=== PATIENT | female | born 1985 | race Caucasian/White ===

== ENCOUNTER 2017-01-09 10:45 | Emergency (ER) | payer OTHER ==
[2017-01-09 10:51] VITALS: BP 142/96; PULSE 100; TEMP 98.4; BMI 32.9
--- NOTE | 2017-01-09 12:00 | PDOC ---
History of Present Illness - General Chief Complaint: Respiratory Stated Complaint: COUGH&COLD SX Time Seen by Provider: 01/09/17 10:50 History Source: Patient Exam Limitations: No Limitations - History of Present Illness Initial Comments: 01/09/17 11:57 CHIEF COMPLAINT: "I have a cough for 3 weeks." HISTORY OF PRESENT ILLNESS: 31-year-old female with a history of one half pack per day smoking. Patient developed a cold when her son was sick. It seemed like it was starting to get better but now it has continued. She has ongoing cough productive of green sputum. She also has some nasal congestion. There is no fever. There is no chest pain. There is no shortness of breath. When she takes a deep breath, she has severe paroxysms of coughing. REVIEW OF SYSTEMS: GENERAL/CONSTITUTIONAL: No fever or chills. No weakness. No weight change. HEAD, EYES, EARS, NOSE AND THROAT: No change in vision. No ear pain or discharge. No sore throat. CARDIOVASCULAR: No chest pain. Positive cough. No shortness of breath. RESPIRATORY: Positive cough. No audible wheezing. No hemoptysis. GASTROINTESTINAL: No nausea, vomiting, diarrhea or constipation. No rectal bleeding. GENITOURINARY: No dysuria, frequency, or change in urination. MUSCULOSKELETAL: No joint or muscle swelling or pain. No neck or back pain. SKIN AND BREASTS: No rash or easy bruising. NEUROLOGIC: No headache, vertigo, loss of consciousness, or loss of sensation. PSYCHIATRIC: No depression or anxiety. ENDOCRINE: No increased thirst. No abnormal weight change. HEMATOLOGIC/LYMPHATIC: No anemia, easy bleeding, or history of blood clots. ALLERGIC/IMMUNOLOGIC: No hives or skin allergy. No latex allergy. Past History - Past Medical History Allergies/Adverse Reactions: Allergies Allergy/AdvReac Type Severity Reaction Status Date / Time No Known Allergies Allergy Verified 01/09/17 10:46 Home Medications: Ambulatory Orders Acetaminophen [Tylenol .Extra-Strength -] 1,000 mg PO ASDIR 01/09/17 Azithromycin 250 mg PO DAILY #7 tablet 01/09/17 Lisdexamfetamine Dimesylate [Vyvanse] 40 mg PO DAILY 01/09/17 Asthma: No Cancer: No Cardiac Disorders: No Diabetes: No Disorders: No HTN: No Psychiatric Problems: Yes (ADD) Seizures: No Thyroid Disease: No - Reproductive History (#): 2 Ectopic : No (FAMILY HISTORY) Therapeutic (s) & number: No - Psycho/Social/Smoking Cessation Hx Anxiety: No Suicidal Ideation: No Smoking History: Never smoked Have you smoked in the past 12 months: Yes Number of Cigarettes Smoked Daily: 15 If you are a former smoker, when did you quit?: 09/2011 Cigars Per Day: 0 Information on smoking cessation initiated: Yes 'Breaking Loose' booklet given: 01/09/17 Hx Alcohol Use: No Drug/Substance Use Hx: No Substance Use Type: Alcohol Hx Substance Use Treatment: No *Physical Exam - Vital Signs Last Vital Signs Temp Pulse Resp BP Pulse Ox 98.4 F 100 H 20 142/96 100 01/09/17 10:45 01/09/17 10:45 01/09/17 10:45 01/09/17 10:45 01/09/17 10:45 - Physical Exam Comments: 01/09/17 11:59 GENERAL: The patient is awake, alert, and fully oriented, in no acute distress. HEAD: Normal with no signs of trauma. EYES: Pupils equal, round and reactive to light, extraocular movements intact, sclera anicteric, conjunctiva clear. ENT: Ears normal, nares patent, oropharynx clear without exudates. Moist mucous membranes. NECK: Normal range of motion, supple without lymphadenopathy, JVD, or masses. LUNGS: There are mild scattered wheezes. No crackles. There is no pleuritic chest pain. HEART: Regular rate and rhythm, normal S1 and S2 without murmur, rub or gallop. ABDOMEN: Soft, nontender, normoactive bowel sounds. No guarding, no rebound. No masses. EXTREMITIES: Normal range of motion, no edema. No clubbing or cyanosis. No cords, erythema, or tenderness. NEUROLOGICAL: Cranial nerves II through XII grossly intact. Normal speech, normal gait. PSYCH: Normal mood, normal affect. SKIN: Warm, Dry, normal turgor, no rashes or lesions noted. ED Treatment Course - RADIOLOGY Radiology Studies Ordered: Category Date Time Status CHEST PA & LAT [RAD] Stat Radiology 01/09/17 11:06 Completed Medical Decision Making - Medical Decision Making 01/09/17 12:00 She is a 31-year-old female, positive smoker, presents complaining of 3 weeks of cough with green sputum. She states she has tried to quit smoking without success. She plans to go back to her doctor to try again. She has no hemoptysis. On examination, there is mild scattered wheezing, and some coughing with green sputum. Chest x-ray PA and lateral shows no acute infiltrates and no abnormalities. Impression: 3 weeks of bronchitis in a smoker. Patient will be treated with azithromycin for 7 days. She has Ventolin at home for her son and she states she will use the Ventolin 2 puffs every 4 hours. Patient advised to follow-up with her primary care physician after one week of treatment. *DC/Admit/Observation/Transfer Diagnosis at time of Disposition: Bronchitis - Discharge Dispostion Disposition: HOME Condition at time of disposition: Stable Admit: No - Prescriptions Prescriptions: Azithromycin 250 mg PO DAILY #7 tablet - Patient Instructions Printed Discharge Instructions: DI for Acute Bronchitis Additional Instructions: You were evaluated today for cough and green sputum. The chest x-ray is clear. On your examination, there is some mild wheezing. Your diagnosis is bronchitis. You should try to quit smoking or at least cut down. Take azithromycin antibiotic daily for 7 days. Take Ventolin 2 puffs every 4 hours as needed for cough or wheezing. Follow up after one week of treatment with your primary care physician. Bring the copy of your chest x-ray report to your visit. Return to the emergency department for any severe or progressive symptoms.
[2017-01-09] MEDS ORDERED: AZITHROMYCIN 250 MG TABLET (FP) PO ONE (12:04)
[2017-01-09] MEDS ORDERED: AZITHROMYCIN 250 MG TABLET (FP) ONE (12:04)
== END 2017-01-09 12:10 | disposition home or self-care (01) ==
LOC: FER 10:45
DX: J40 Bronchitis, not specified as acute or chronic (principal); Z87.891 Personal history of nicotine dependence
CPT/HCPCS: 71020-TC; 99283-25

== ENCOUNTER 2017-07-17 09:23 | Emergency (ER) | payer OTHER ==
[2017-07-17 09:31] VITALS: BP 146/105; PULSE 96; TEMP 98.5; BMI 30.7
--- NOTE | 2017-07-17 09:45 | PDOC ---
History of Present Illness - General Chief Complaint: Pain Stated Complaint: THROAT AND EAR PAIN Time Seen by Provider: 07/17/17 09:27 History Source: Patient Exam Limitations: No Limitations - History of Present Illness Initial Comments: 07/17/17 09:40 31y F no signficant pmhx presents with sore throat. Pt states she has had a sore throat intermittently for several months - it is worse on the right side. she thinks it may have started after she was intubated for a cosmetic surgery in march 2017. She notes she also currently has been having some nasal congestion and mild cough productive of clear sputum w/o associated fever/ chills. the throat pain radiates up to her R ear. Pt ntoes her voice may be alittle hoarse. Pt staes she went to her PMD 2 weeks ago for the same and urgent care this morning for the same. She was referred to an ENT but states the next appointment is in august. Pt denies any sob, cp, neck pain, back pain , nv, abd pain, f/c. Pt does endorse pain when she swallows. 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 Blake Jones Past History - Past Medical History Allergies/Adverse Reactions: Allergies Allergy/AdvReac Type Severity Reaction Status Date / Time No Known Allergies Allergy Verified 07/17/17 09:24 Home Medications: Ambulatory Orders Lisdexamfetamine Dimesylate [Vyvanse] 40 mg PO DAILY 01/09/17 Prilosec 07/17/17 Asthma: No Cancer: No Cardiac Disorders: No Diabetes: No Disorders: No HTN: No Psychiatric Problems: Yes (ADD) Seizures: No Thyroid Disease: No - Reproductive History (#): 2 Ectopic : No (FAMILY HISTORY) Therapeutic (s) & number: No - Psycho/Social/Smoking Cessation Hx Anxiety: No Suicidal Ideation: No Smoking History: Current every day smoker Have you smoked in the past 12 months: Yes Number of Cigarettes Smoked Daily: 10 If you are a former smoker, when did you quit?: 09/2011 Cigars Per Day: 0 Information on smoking cessation initiated: Yes 'Breaking Loose' booklet given: 07/17/17 Hx Alcohol Use: No Drug/Substance Use Hx: No Substance Use Type: None Hx Substance Use Treatment: No Review of Systems - Review of Systems Able to Perform ROS?: Yes Comments:: 07/17/17 09:42 Constitutional - no reported Fever, Chills, HEENT: +Sore throat no reported vision changes Respiratory: no reported cough, sob, hemoptysis Cardiac: no reported chest pain, palpitations, light headedness, leg swelling Abd/GI: no reported abd pain, nausea, vomiting, blood per rectum, melena, diarrhea : no reported dysuria, frequency, discharge Musculskelatal - no reported back pain, joint swelling skin - no reported bruising, erythema, rash neurological: no reported headache, numbness, focal weakness, tingling, ataxia, hematologic: no reported anemia, easy bruising, easy bleeding *Physical Exam - Vital Signs Last Vital Signs Temp Pulse Resp BP Pulse Ox 98.5 F 96 H 20 146/105 100 07/17/17 09:24 07/17/17 09:24 07/17/17 09:24 07/17/17 09:24 07/17/17 09:24 - Physical Exam Comments: 07/17/17 09:43 GENERAL: The patient is awake, alert, and fully oriented, Nontoxic - in no acute distress. HEAD: Normocephalic, atraumatic. EYES: extraocular movements intact, sclera anicteric, conjunctiva clear. ENT: Normal voice, Moist mucous membranes. No pharyngeal exudates, No eryhthema , massess, no focal tenderness, aiirway patent, no stridor noted. NECK: Normal range of motion, supple, no palpable lymphnodes. LUNGS: Breath sounds equal, scattered wheezing b/l HEART: Regular rate and rhythm, normal S1 and S2 without murmur, rub or gallop. ABDOMEN: Soft, nontender, normoactive bowel sounds. No guarding, no rebound. . No CVA tenderness EXTREMITIES: Normal range of motion, no edema. No clubbing or cyanosis. No cords, erythema, or tenderness. NEUROLOGICAL: No facial assymetry, Normal speech, moving all 4 extermities spontaneously and symetrically. PSYCH: Normal mood, normal affect. SKIN: Warm, Dry, normal turgor, Medical Decision Making - Medical Decision Making 09/10/17 09:45 31y f with sore throat, congestion exam unremarkble no distress airway patenet will r/o strep will refer to ENT pt declines pain meds as he took a cold med this morning with tylenol 07/17/17 10:25 rapid strep neg will dc to fu with ent return precautions were discussed I discussed the physical exam findings, ancillary test results and final diagnoses with the patient. I answered all of the patient's questions. The patient was satisfied with the care received and felt comfortable with the discharge plan and treatment plan. The patient will call their primary care physician within 24 hours to arrange follow-up and will return to the Emergency Department with any new, persistent or worsening symptoms. *DC/Admit/Observation/Transfer Diagnosis at time of Disposition: Pharyngitis Qualifiers: Pharyngitis/tonsillitis etiology: other specified organisms Qualified Code(s): J02.8 - Acute pharyngitis due to other specified organisms - Discharge Dispostion Disposition: HOME Condition at time of disposition: Improved Admit: No - Referrals Referrals: Francois Moeller MD [Staff Physician] - - Patient Instructions Printed Discharge Instructions: DI for Pharyngitis/Tonsillopharyngitis -- Adult Additional Instructions: Return to the emergency department immediately with ANY new, persistent or worsening symptoms including any difficulty swallowing, shortness of breath, swelling in your mouth/tongue or other concerns. Use a respirator when sanding at home as this may cause throat irritation. Take the prilosec as directed by your primary care doctor. You MUST call and follow up with an ENT doctor for further evaluation of your symptoms. Results were discussed with you. Please make sure your doctor reviews the results of your emergency evaluation. Print Language: GIBRALTARIAN
== END 2017-07-17 10:49 | disposition home or self-care (01) ==
LOC: FER 09:23
DX: J02.8 Acute pharyngitis due to other specified organisms (principal)
CPT/HCPCS: 87070; 87430; 99281-25

== ENCOUNTER 2019-07-25 08:53 | Inpatient (IN) | payer OTHER ==
[2019-07-25 09:35] VITALS: BMI 34.6
--- NOTE | 2019-07-25 10:22 | HP ---
CIWA Score Nausea/Vomitin-Mild Nausea/No Vomiting Muscle Tremors: 2 Anxiety: 3 Agitation: 3 Paroxysmal Sweats: 2 Orientation: 0-Oriented Tacttile Disturbances: 0-None Auditory Disturbances: 0-None Visual Disturbances: 0-None Headache: 4-Moderately Severe (appropriate for detox) CIWA-Ar Total Score: 15 - Admission Criteria [facility] Guidelines: Admission for Medically Managed Detox: Requires at least one of the followin. CIWA greater than 12 2. Seizures within the past 24 hours 3. Delirium tremens within the past 24 hours 4. Hallucinations within the past 24 hours 5. Acute intervention needed for co occurring medical disorder 6. Acute intervention needed for co occurring psychiatric disorder 7. Severe withdrawal that cannot be handled at a lower level of care (continued vomiting, continued diarrhea, abnormal vital signs) requiring intravenous medication and/or fluids 8. Admission ROS S - [facility] Chief Complaint: " I have been doing of lot of drinking and I have two children and I have to go to court for them. I drink every morning and every evening." Allergies/Adverse Reactions: Allergies Allergy/AdvReac Type Severity Reaction Status Date / Time No Known Allergies Allergy Verified 07/17/17 09:24 History of Present Illness: 33 year old female with alcohol dependence. She just got and going through a lot of stress. She can't control her drinking anymore. She is currently drinking 1 bottle of wine daily, and beers about 9 per day, last drank this morning in waiting room. She smokes 1ppd for 15 years. She has had blackouts and many ER visits, last time was 1 week ago. She's had panic attacks which brings her to ER a lot of times. She denies any withdrawal seizures. PMH: None Psurg Hx: Cosmetic surgery - breast augmentation and liposuction. Meds: Vivance and Prozac, stopped it 2.5 weeks ago All: None Psych: Depression on vivance prozac ; also has ADHD. Exam Limitations: No Limitations - Ebola screening Have you traveled outside of the country in the last 21 days: No Have you had contact with anyone from an Ebola affected area: No Have you been sick,other than usual withdrawal symptoms: No Do you have a fever: No - Review of Systems Constitutional: Chills, Diaphoresis EENT: reports: No Symptoms Reported Respiratory: reports: No Symptoms reported, Other (snores a lot) Cardiac: reports: No Symptoms Reported GI: reports: No Symptoms Reported : reports: No Symptoms Reported Musculoskeletal: reports: No Symptoms Reported Integumentary: reports: No Symptoms Reported Neuro: reports: Headache, Tremors Endocrine: reports: No Symptoms Reported Hematology: reports: No Symptoms Reported Psychiatric: reports: Anxious, Depressed Other Systems: Reviewed and Negative Patient History - Patient Medical History Hx Anemia: No Hx Asthma: No Hx Chronic Obstructive Pulmonary Disease (COPD): No Hx Cancer: No Hx Cardiac Disorders: No Hx Congestive Heart Failure: No Hx Hypertension: No Hx Hypercholesterolemia: No Hx Pacemaker: No HX Cerebrovascular Accident: No Hx Seizures: No Hx Diabetes: No Hx Gastrointestinal Disorders: No Hx Liver Disease: No Hx Genitourinary Disorders: No Hx Sexually Transmitted Disorders: No Hx Renal Disease (ESRD): No Hx Thyroid Disease: No Hx Human Immunodeficiency Virus (HIV): No Hx Hepatitis C: No Hx Depression: Yes Hx Suicide Attempt: No Hx Bipolar Disorder: No Hx Schizophrenia: No - PPD History Previous Implant?: Yes Documented Results: Positive w/o proof Implanted On Prior [facility] Admission?: No Date: 06/21/15 PPD to be Administered?: No - Reproductive History Patient is a Female of Child Bearing Age (11 -55 yrs old): Yes Last Menstrual Period: 09/07/14 - Smoking Cessation Smoking history: Unknown if ever smoked Have you smoked in the past 12 months: Yes Aproximately how many cigarettes per day: 10 If you are a former smoker, when did you quit?: 09/2011 Cigars Per Day: 0 Hx Chewing Tobacco Use: No Initiated information on smoking cessation: Yes 'Breaking Loose' booklet given: 07/25/19 - Substances abused Alcohol Substance route: Oral Frequency: Daily Amount used: " I dont know" varies Age of first use: 17 Date of last use: 07/25/19 Family Disease History - Family Disease History Family Disease History: Other: Father (alive and well), Mother (alive and well) , Son (2 sons alive and well) Admission Physical Exam [facility] - Vital Signs Vital Signs: Vital Signs - 24 hr 07/25/19 09:19 Temperature 97.3 F L Pulse Rate 107 H Respiratory 18 Rate Blood Pressure 161/111 H - Physical General Appearance: Yes: Moderate Distress, Tremorous (She is easily teary and at times sobbing), Anxious, Other HEENTM: Yes: EOMI, Hearing grossly Normal, Normal ENT Inspection, Normocephalic , Normal Voice, LUDWIG, Pharynx Normal, Tm's normal Respiratory: Yes: Chest Non-Tender, Lungs Clear, Normal Breath Sounds, No Respiratory Distress, No Accessory Muscle Use Neck: Yes: No masses,lesions,Nodules, Supple, Trachea in good position Breast: Yes: Breast Exam Deferred Cardiology: Yes: Regular Rhythm, Regular Rate, S1, S2 Abdominal: Yes: Normal Bowel Sounds, Non Tender, Flat, Soft Genitourinary: Yes: Within Normal Limits Back: Yes: Within Normal Limits, Normal Inspection Musculoskeletal: Yes: Within Normal Limits, full range of Motion, Gait Steady, Pelvis Stable Extremities: Yes: Normal Capillary Refill, Normal Inspection, Normal Range of Motion, Non-Tender Neurological: Yes: returner II-XII NML intact, Fully Oriented, Alert, Motor Strength 5/5, Normal Mood/Affect, Normal Response Integumentary: Yes: Normal Color, Warm, Petechiae Lymphatic: Yes: Within Normal Limits - Diagnostic (1) Alcohol dependence with withdrawal Current Visit: Yes Status: Acute (2) Obesity Current Visit: Yes Status: Acute (3) Depression Current Visit: Yes Status: Acute (4) Attention deficit disorder of adult with hyperactivity Current Visit: Yes Status: Acute Cleared for Admission S - Detox or Rehab [facility] Level of Care: Medically Managed Detox Regimen/Protocol: Librium Screened but not Admitted - Documentation of Visit Screened but not Admitted: No Left Prior to Completion of Assessment: No Insurance Authorization Denied: No Patient Does Not Meet Criteria for Admission: No Alternative Treatment/Long Term Info Provided: No Breathalyzer - Breathalyzer Breathalyzer: 0.062 Vital Signs - Vital Signs Vital signs refused: No Temperature: 97.3 F Temperature source: Oral Pulse Rate: 107 Respiratory Rate: 18 Blood Pressure: 161/111 BP Location: Left Arm Blood Pressure position: Sitting - Height Height: 5 ft 5 in - Weight Weight: 208 lb Weight measurement method: Standing scale - BMI Body Mass Index (BMI): 34.6 - Bowel Function Bowel Movement: Yes Inpatient Rehab Admission - Rehab Decision to Admit Inpatient rehab admission?: No
[2019-07-25] MEDS ORDERED: MAGNESIUM HYDROX 2400MG/30ML ORAL SUSPENSION 30 ML CUP PO PRN (10:36)
[2019-07-25] MEDS ORDERED: MAGNESIUM CITRATE 300 ML BOTTLE PO PRN (10:36)
[2019-07-25] MEDS ORDERED: METHOCARBAMOL 500 MG TABLET PO PRN (10:36)
[2019-07-25] MEDS ORDERED: MENTHOL/PHENOL 1 EACH UD MM PRN (10:36)
[2019-07-25] MEDS ORDERED: IBUPROFEN 400 MG TABLET (FP) PO PRN (10:36)
[2019-07-25] MEDS ORDERED: chlordiazePOXIDE HCL 25 MG CAPSULE PO PRN (10:36)
[2019-07-25] MEDS ORDERED: ACETAMINOPHEN 325 MG TABLET (FP) PO PRN ×2 (10:36)
[2019-07-25] MEDS ORDERED: BISMUTH SUBSALICYLATE 524 MG/30 ML UD PO PRN (10:36)
[2019-07-25] MEDS ORDERED: MAG HYDROX/AL HYDROX/SIMETH 30 ML UNIT-DOSE CUP PO PRN (10:36)
[2019-07-25] MEDS: NICOTINE 14 MG/24 HOURS TOPICAL PATCH TD SCH (11:29)
[2019-07-25] MEDS: chlordiazePOXIDE HCL 25 MG CAPSULE PO SCH ×3 (11:29→22:24)
[2019-07-25 14:31] LABS: HEMATOCRIT 43.6 % (32.4-45.2); HEMOGLOBIN 14.9 GM/dL (10.7-15.3); MCH 32.5 pg (25.7-33.7); MCHC 34.2 g/dl (32.0-36.0); MEAN CELL VOLUME 94.9 fl (80-96); MEAN PLT VOLUME 7.2 fl (7.5-11.1); PLATELET COUNT 277 K/MM3 (134-434); RDW 13.5 % (11.6-15.6); WHITE BLOOD COUNT 10.2 K/mm3 (4.0-10.0)
[2019-07-25 14:45] LABS: ALBUMIN 4.1 g/dl (3.4-5.0); BILIRUBIN,TOTAL 0.2 mg/dL (0.2-1); CALCIUM 8.7 mg/dL (8.5-10.1); CREATININE 0.7 mg/dL (0.55-1.3); POTASSIUM 4.3 mmol/L (3.5-5.1); TOT PROT 7.6 g/dl (6.4-8.2)
[2019-07-25] MEDS: MELATONIN 5 MG TABLETS PO PRN (22:24)
[2019-07-25] MEDS: THIAMINE HCL 100 MG TABLET (FP) PO SCH (22:24)
[2019-07-26] MEDS: chlordiazePOXIDE HCL 25 MG CAPSULE PO SCH ×4 (06:52→22:35)
[2019-07-26] MEDS: NICOTINE 14 MG/24 HOURS TOPICAL PATCH TD SCH (11:35)
[2019-07-26] MEDS: PRENATAL VITAMINS W/ FOLIC ACID TABLET (FP) PO SCH (11:35)
--- NOTE | 2019-07-26 13:07 | CONSULT ---
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 This is patient's first admission to detox at [facility]. Patient admitted to for alcohol dependence. Substance Abuse History: Smoking Cessation. Smoking history: Unknown if ever smoked. Have you smoked in the past 12 months: Yes. Aproximately how many cigarettes per day: 10. If you are a former smoker, when did you quit?: 2010. Cigars Per Day: 0. Hx Chewing Tobacco Use: No. Initiated information on smoking cessation: Yes. 'Breaking Loose' booklet given: 07/25/19. - Substances abused. Alcohol. Substance route: Oral. Frequency: Daily. Amount used: " I dont know" varies. Age of first use: 17. Date of last use: Medical History: denies. Psychiatric History: Patient's first psychiatric contact was at 13 years of age due to her history of depression. She saw an outpatient psychiatrist and was provided with psychotherapy. Patient reports history of seeing multiple outpatient psychiatric providers Ms. Vega is currently under the care Dr. Trevino at [facility] and prescribed vyvanse 40mg (30 say script on 06/04/19)+ Prozac 20mg (30 day script on 06/04/19). Diagnosis of MDD and ADHD. Last took medications 2 weeks ago. Patient requesting to resume prozac. Patient denies history of psychiatric hospitalization and suicide attempt. At present, patient reports depressed mood and difficulty sleeping. Physical/Sexual Abuse/Trauma History: denies. Mental Status Exam - Mental Status Exam Alert and Oriented to: Time, Place, Person Cognitive Function: Good Patient Appearance: Well Groomed Mood: Sad Affect: Mood Congruent Patient Behavior: Cooperative Speech Pattern: Appropriate Voice Loudness: Moderately Soft/Quiet Thought Process: Goal Oriented Thought Disorder: Not Present Hallucinations: Denies Suicidal Ideation: Denies Homicidal Ideation: Denies Insight/Judgement: Poor Sleep: Poorly Appetite: Fair Muscle strength/Tone: Normal Gait/Station: Normal Psychiatric Findings - Problem List ([place] 1, 2,3) (1) ADHD (attention deficit hyperactivity disorder) Current Visit: No Status: Chronic (2) Alcohol dependence with withdrawal Current Visit: Yes Status: Acute (3) MDD (major depressive disorder) Current Visit: Yes Status: Chronic (4) Alcohol-induced mood disorder Current Visit: Yes Status: Acute - Initial Treatment Plan Initial Treatment Plan: Psychoeducation provided. Deoxification in progress. Will order Prozac 20mg daily. Benefits and side effects discussed. Verbal consent given.
--- NOTE | 2019-07-26 14:55 | PN ---
[facility] CIWA - CIWA Score Nausea/Vomitin-No Nausea/No Vomiting Muscle Tremors: 3 Anxiety: 4-Mod. Anxious/Guarded Agitation: 4-Moderately Restless Paroxysmal Sweats: 3 Orientation: 0-Oriented Tacttile Disturbances: 0-None Auditory Disturbances: 0-None Visual Disturbances: 0-None Headache: 0-None Present CIWA-Ar Total Score: 14 B[facility] Progress Note (SOAP) Subjective: sweats shakes body aches interrupted sleep Objective: 07/26/19 14:55 Vital Signs Temperature 97.9 F 07/26/19 14:02 Pulse Rate 97 H 07/26/19 14:02 Respiratory Rate 18 07/26/19 14:02 Blood Pressure 145/81 07/26/19 14:02 O2 Sat by Pulse Oximetry (%) Laboratory Tests 07/25/19 07/25/19 07/25/19 11:00 11:00 11:00 WBC 10.2 H RBC 4.60 Hgb 14.9 Hct 43.6 D MCV 94.9 MCH 32.5 D MCHC 34.2 RDW 13.5 Plt Count 277 D MPV 7.2 L D Sodium 140 Potassium 4.3 Chloride 107 Carbon Dioxide 28 Anion Gap 4 L BUN 6.0 L Creatinine 0.7 Est GFR (CKD-EPI)AfAm 133.81 Est GFR (CKD-EPI)NonAf 115.45 Random Glucose 87 Calcium 8.7 Total Bilirubin 0.2 AST 21 ALT 43 Alkaline Phosphatase 76 Total Protein 7.6 Albumin 4.1 RPR Titer Nonreactive labs noted aaox3 ambulating no acute distress Assessment: 07/26/19 14:55 withdrawals Plan: continue detox increase fluids
[2019-07-26] MEDS: hydrOXYzine PAMOATE 25 MG CAPSULE (FP) PO PRN (20:46)
[2019-07-26] MEDS: THIAMINE HCL 100 MG TABLET (FP) PO SCH (22:35)
[2019-07-27] MEDS: chlordiazePOXIDE HCL 25 MG CAPSULE PO SCH ×4 (07:06→22:50)
--- NOTE | 2019-07-27 10:04 | PN ---
[facility] CIWA - CIWA Score Nausea/Vomitin-No Nausea/No Vomiting Muscle Tremors: 2 Anxiety: 2 Agitation: 2 Paroxysmal Sweats: 2 Orientation: 0-Oriented Tacttile Disturbances: 0-None Auditory Disturbances: 0-None Visual Disturbances: 0-None Headache: 0-None Present CIWA-Ar Total Score: 8 BHS Progress Note (SOAP) Subjective: librium is too much sweats mild shakes interrupted sleep Objective: 07/27/19 10:02 Vital Signs Temperature 98.6 F 07/27/19 09:56 Pulse Rate 112 H 07/27/19 09:56 Respiratory Rate 18 07/27/19 09:56 Blood Pressure 140/61 07/27/19 09:56 O2 Sat by Pulse Oximetry (%) Laboratory Tests 07/25/19 07/25/19 07/25/19 11:00 11:00 11:00 WBC 10.2 H RBC 4.60 Hgb 14.9 Hct 43.6 D MCV 94.9 MCH 32.5 D MCHC 34.2 RDW 13.5 Plt Count 277 D MPV 7.2 L D Sodium 140 Potassium 4.3 Chloride 107 Carbon Dioxide 28 Anion Gap 4 L BUN 6.0 L Creatinine 0.7 Est GFR (CKD-EPI)AfAm 133.81 Est GFR (CKD-EPI)NonAf 115.45 Random Glucose 87 Calcium 8.7 Total Bilirubin 0.2 AST 21 ALT 43 Alkaline Phosphatase 76 Total Protein 7.6 Albumin 4.1 RPR Titer Nonreactive labs noted aaox3 ambulating no acute distress Assessment: 07/27/19 10:02 withdrawals sx Plan: hold 10am libirum pt can request for it later today increase fluids
[2019-07-27] MEDS: FLUoxetine HCL 20 MG CAPSULE (FP) PO SCH (10:09)
[2019-07-27] MEDS: PRENATAL VITAMINS W/ FOLIC ACID TABLET (FP) PO SCH (10:09)
[2019-07-27] MEDS: NICOTINE 14 MG/24 HOURS TOPICAL PATCH TD SCH (10:09)
[2019-07-27] MEDS: hydrOXYzine PAMOATE 25 MG CAPSULE (FP) PO PRN (18:36)
[2019-07-27] MEDS: THIAMINE HCL 100 MG TABLET (FP) PO SCH (22:51)
[2019-07-27] MEDS: MELATONIN 5 MG TABLETS PO PRN (22:51)
[2019-07-28] MEDS ORDERED: chlordiazePOXIDE HCL 10 MG CAPSULE PO PRN
[2019-07-28 06:51] VITALS: BP 134/73; PULSE 85; TEMP 97.9
[2019-07-28] MEDS: chlordiazePOXIDE HCL 10 MG CAPSULE PO SCH ×2 (07:21→10:08)
[2019-07-28] MEDS: FLUoxetine HCL 20 MG CAPSULE (FP) PO SCH (10:07)
[2019-07-28] MEDS: PRENATAL VITAMINS W/ FOLIC ACID TABLET (FP) PO SCH (10:07)
[2019-07-28] MEDS: NICOTINE 14 MG/24 HOURS TOPICAL PATCH TD SCH (10:07)
--- NOTE | 2019-07-28 13:08 | DS ---
[facility] Detox Discharge Summary Admission Date: 07/25/19 Discharge Date: 07/28/19 (Left AMA) - History Present History: Alcohol Dependence Additional Comments: Pt left AMA, did not complete her detox protocol. Pt states, "i have to leave to take care of something important". An attempt to let pt stay and complete her detox protocol failed. Pt is encouraged to follow-up with outpatient CD program and also to follow-up with her PMD. Pt verbalized understanding. Pt is alert and oriented x3 and in no respiratory distress. Pertinent Past History: H/O alcohol use disorder. - Physical Exam Results Vital Signs: Vital Signs Temperature 97.9 F 07/28/19 06:00 Pulse Rate 85 07/28/19 06:00 Respiratory Rate 18 07/28/19 06:00 Blood Pressure 134/73 07/28/19 06:00 O2 Sat by Pulse Oximetry (%) Vital Signs 07/28/19 06:00 Temperature 97.9 F Pulse Rate 85 Respiratory 18 Rate Blood Pressure 134/73 Lab Results WBC 10.2 K/mm3 (4.0-10.0) H 07/25/19 11:00 RBC 4.60 M/mm3 (3.60-5.2) 07/25/19 11:00 Hgb 14.9 GM/dL (10.7-15.3) 07/25/19 11:00 Hct 43.6 % (32.4-45.2) D 07/25/19 11:00 MCV 94.9 fl (80-96) 07/25/19 11:00 MCHC 34.2 g/dl (32.0-36.0) 07/25/19 11:00 RDW 13.5 % (11.6-15.6) 07/25/19 11:00 Plt Count 277 K/MM3 (134-434) D 07/25/19 11:00 Sodium 140 mmol/L (136-145) 07/25/19 11:00 Potassium 4.3 mmol/L (3.5-5.1) 07/25/19 11:00 Chloride 107 mmol/L (98-107) 07/25/19 11:00 Carbon Dioxide 28 mmol/L (21-32) 07/25/19 11:00 Anion Gap 4 MMOL/L (8-16) L 07/25/19 11:00 BUN 6.0 mg/dL (7-18) L 07/25/19 11:00 Creatinine 0.7 mg/dL (0.55-1.3) 07/25/19 11:00 Random Glucose 87 mg/dL (74-106) 07/25/19 11:00 Calcium 8.7 mg/dL (8.5-10.1) 07/25/19 11:00 Labs noted. Pertinent Admission Physical Exam Findings: withdrawal symptoms. - Treatment Hospital Course: Detox Protocol Followed - Medication Discharge Medications: Ambulatory Orders Fluoxetine HCl [Prozac] 20 mg PO DAILY 07/25/19 Lisdexamfetamine Dimesylate [Vyvanse] 40 mg PO DAILY 07/25/19 - Diagnosis (1) Alcohol dependence with withdrawal Status: Acute (2) Bronchitis Status: Acute - AMA Did Patient Leave Against Medical Advice: Yes [facility] CIWA - CIWA Score Nausea/Vomitin-No Nausea/No Vomiting Muscle Tremors: 2 Anxiety: 3 Agitation: 0-Normal Activity Paroxysmal Sweats: 3 Orientation: 0-Oriented Tacttile Disturbances: 0-None Auditory Disturbances: 0-None Visual Disturbances: 0-None Headache: 2-Mild CIWA-Ar Total Score: 10
[2019-07-29] MEDS ORDERED: chlordiazePOXIDE HCL 10 MG CAPSULE PO SCH (05:00)
[2019-07-30] MEDS ORDERED: chlordiazePOXIDE HCL 10 MG CAPSULE PO ONE (05:00)
== END 2019-07-28 11:35 | disposition left against medical advice (07) | DRG 770 ==
LOC: YASAS 08:53 → Y6N 10:58
PROVIDERS: ADMIT Surgery; ATTEND Surgery
PROC: HZ2ZZZZ Detoxification Services for Substance Abuse Treatment (ICD-10-PCS; principal; 2019-07-25)
DX: F10.230 Alcohol dependence with withdrawal, uncomplicated (principal); F10.24 Alcohol dependence with alcohol-induced mood disorder; F33.9 Major depressive disorder, recurrent, unspecified; F90.9 Attention-deficit hyperactivity disorder, unspecified type; E66.9 Obesity, unspecified; Z68.34 Body mass index [BMI] 34.0-34.9, adult
CPT/HCPCS: 36415; 71046-TC-FY; 80053; 81025; 85027; 86593

== ENCOUNTER 2020-12-19 20:00 | Emergency (ER) | payer OTHER ==
[2020-12-19 20:18] VITALS: BP 153/87; PULSE 98; TEMP 98.6; BMI 34.4
[2020-12-19 20:51] LABS: BASO % 2.6 % (0-2.0); EOS % 1.5 % (0-4.5); HEMATOCRIT 47.2 % (32.4-45.2); HEMOGLOBIN 15.8 GM/dl (10.7-15.3); LYMPH % 22.4 % (8-40); MCHC 33.4 g/dl (32.0-36.0); MEAN CELL VOLUME 98.7 fl (80-96); MEAN PLT VOLUME 7.3 fl (7.5-11.1); MONO % 5.3 % (3.8-10.2); NEUT % 68.2 % (42.8-82.8); PLATELET COUNT 277 K/MM3 (134-434); RBC 4.79 M/mm3 (3.60-5.2); RDW 12.9 % (11.6-15.6); WHITE BLOOD COUNT 11.7 K/mm3 (4.0-10.8)
[2020-12-19 21:01] LABS: EPITHELIAL CELLS FEW /hpf
[2020-12-19 21:08] LABS: ALBUMIN 4.2 g/dl (3.4-5.0); BILIRUBIN,TOTAL 0.3 mg/dl (0.2-1); CALCIUM 8.4 mg/dl (8.5-10); CREATININE 0.6 mg/dl (0.55-1.3); MAGNESIUM 2.3 mg/dL (1.8-2.4); POTASSIUM 3.6 mmol/L (3.5-5.1); TOT PROT 7.5 g/dl (6.4-8.2)
[2020-12-19] MEDS ORDERED: CEPHALEXIN MONOHYDRATE 500 MG CAPSULE (UD) PO ONE (21:13)
[2020-12-19] MEDS ORDERED: CEPHALEXIN MONOHYDRATE 500 MG CAPSULE (UD) ONE (21:14)
== END 2020-12-19 21:26 | disposition home or self-care (01) ==
LOC: FER 20:00
DX: N39.0 Urinary tract infection, site not specified (principal); R51.9 Headache, unspecified; R11.0 Nausea
CPT/HCPCS: 36415; 80053; 81003; 81015; 83735; 84703; 85025; 99283-25

== ENCOUNTER 2021-05-11 16:10 | Emergency (ER) | payer OTHER ==
[2021-05-11] MEDS ORDERED: ACETAMINOPHEN 325 MG TABLET (FP) PO ONE (16:21)
[2021-05-11 16:24] VITALS: BP 146/96; PULSE 92; TEMP 98.7; BMI 35.2
[2021-05-11] MEDS ORDERED: ACETAMINOPHEN 325 MG TABLET (FP) ONE (16:24)
[2021-05-11] MEDS ORDERED: IBUPROFEN 600 MG TABLET (FP) PO ONE ×2 (16:25→16:27)
== END 2021-05-11 18:13 | disposition home or self-care (01) ==
LOC: FER 16:10
DX: S99.912A Unspecified injury of left ankle, initial encounter (principal); X50.9XXA Other and unspecified overexertion or strenuous movements or postures, initial encounter
CPT/HCPCS: 73610-TC-LT-FY; 73630-TC-LT; 99283-25

== ENCOUNTER 2022-05-06 08:30 | Inpatient (IN) | payer OTHER ==
[~2022-05-06 08:30] MED LIST: DEXTROSE 5%-LACTATED RINGERS 1,000 ML IV SCH
[2022-05-06 09:24] LABS: PHENCYCLIDINE,URINE NEGATIVE (NEGATIVE)
[2022-05-06 09:25] LABS: COCAINE, UR NEGATIVE (NEGATIVE); METHADONE, UR NEGATIVE (NEGATIVE); OPIATES, URI NEGATIVE (NEGATIVE); URINE BARBITURATES NEGATIVE (NEGATIVE); URINE BENZODIAZEPINES NEGATIVE (NEGATIVE)
[2022-05-06 09:26] LABS: URINE AMPHETAMINES POSITIVE (NEGATIVE)
[2022-05-06] MEDS ORDERED: DINOPROSTONE 10 MG VAGINAL SUPPOSITORY VG ONE (09:45)
[2022-05-06 11:25] VITALS: BMI 35.2
[2022-05-06] MEDS ORDERED: PROMETHAZINE HCL 25 MG/1 ML VIAL ONE (11:45)
[2022-05-06] MEDS ORDERED: BUTORPHANOL TARTRATE 2 MG/ML VIAL ONE (11:45)
[2022-05-06] MEDS ORDERED: PROMETHAZINE HCL 25 MG/1 ML VIAL IVPB ONE (12:15)
[2022-05-06] MEDS ORDERED: BUTORPHANOL TARTRATE 2 MG/ML VIAL IVPB ONE (12:15)
[2022-05-06] MEDS ORDERED: FENTANYL/BUPIVACAINE/NS/PF - PCEA - 50 ML DISP.SYRIN EP ONE (17:40)
[2022-05-06] MEDS ORDERED: BUPIVACAINE HCL/PF 0.25% (2.5MG/ML) 10 ML VIAL ONE (17:46)
[2022-05-06] MEDS ORDERED: MISOPROSTOL 200 MCG TABLET ONE (17:51)
[2022-05-06] MEDS ORDERED: BENZOCAINE 28 GM HEMORRHOIDAL OINTMENT TP PRN (18:14)
[2022-05-06] MEDS ORDERED: ACETAMINOPHEN 325 MG TABLET (FP) PO PRN (18:14)
[2022-05-06] MEDS ORDERED: METHYLERGONOVINE MALEATE 0.2 MG/1 ML AMP IM PRN (18:14)
[2022-05-06] MEDS ORDERED: oxyCODONE HCL 5 MG TABLET PO PRN (18:14)
[2022-05-06] MEDS ORDERED: WITCH HAZEL 50% (TUCKS) 40 PAD/JAR PAD TP PRN (18:14)
[2022-05-06] MEDS ORDERED: IBUPROFEN 600 MG TABLET (FP) PO PRN (18:14)
[2022-05-06] MEDS ORDERED: BISACODYL 10 MG SUPP.RECT RC PRN (18:14)
[2022-05-06] MEDS ORDERED: BENZOCAINE 20% 57 GM BOTTLE TP PRN (18:14)
[2022-05-06] MEDS ORDERED: OXYTOCIN 20 UNITS in 0.9% NS 20 UNIT/1,000 ML INFUS.BAG IV SCH (18:15)
[2022-05-06 19:34] LABS: CORD BASE EXCESS -1.5 mmol/L (0-2); CORD BASE EXCESS -2.2 mmol/L (0-2); CORD HCO3 24.6 mmHg (20-29); CORD PCO2 38.4 mmHg (30-78); CORD PCO2 49.8 mmHg (30-78); CORD pH 7.312 (7.14-7.44); CORD pH 7.395 (7.14-7.44)
[2022-05-06] MEDS ORDERED: NIFEdipine E.R. 30 MG TABLET ONE (19:56)
[2022-05-06] MEDS: NIFEdipine E.R. 30 MG TABLET PO SCH (20:00)
[2022-05-06] MEDS ORDERED: OXYTOCIN 20 UNITS in 0.9% NS 20 UNIT/1,000 ML INFUS.BAG IV ONE (20:04)
[2022-05-06] MEDS ORDERED: oxyCODONE HCL 5 MG TABLET ONE (20:05)
[2022-05-07 08:31] LABS: BASO % 0.5 % (0-2.0); EOS % 0.5 % (0-4.5); HEMATOCRIT 30.7 % (32.4-45.2); HEMOGLOBIN 10.4 GM/dL (10.7-15.3); LYMPH % 16.5 % (8-40); MCH 28.8 pg (25.7-33.7); MCHC 33.9 g/dl (32.0-36.0); MEAN CELL VOLUME 84.9 fl (80-96); MEAN PLT VOLUME 6.5 fl (7.5-11.1); NEUT % 75.5 % (42.8-82.8); PLATELET COUNT 216 10^3/uL (134-434); RBC 3.62 M/mm3 (3.60-5.2); RDW 12.8 % (11.6-15.6); WHITE BLOOD COUNT 13.2 K/mm3 (4.0-10.0)
[2022-05-07] MEDS: NIFEdipine E.R. 30 MG TABLET PO SCH (10:18)
[2022-05-07] MEDS ORDERED: SENNOSIDES/DOCUSATE COMBO (SENNA PLUS) TABLET (UD) PO PRN (22:00)
[2022-05-08] MEDS: NIFEdipine E.R. 30 MG TABLET PO SCH (09:32)
[2022-05-08 11:45] VITALS: PULSE 78; TEMP 98
[2022-05-08 12:37] VITALS: BP 151/99
== END 2022-05-08 14:30 | disposition home or self-care (01) | DRG 560 ==
LOC: JLDR 08:30 → J3W 21:33
PROVIDERS: ADMIT Obstetrics & Gynecology; ATTEND Obstetrics & Gynecology
PROC: 10E0XZZ Delivery of Products of Conception, External Approach (ICD-10-PCS; principal; 2022-05-06)
PROC: 3E0P7VZ Introduction of Hormone into Female Reproductive, Via Natural or Artificial Opening (ICD-10-PCS; 2022-05-06)
PROC: 0HQ9XZZ Repair Perineum Skin, External Approach (ICD-10-PCS; 2022-05-06)
DX: O14.93 Unspecified pre-eclampsia, third trimester (principal); O70.0 First degree perineal laceration during delivery; Z3A.38 38 weeks gestation of pregnancy; Z37.0 Single live birth
CPT/HCPCS: 36415; 36600; 59409; 71046-TC-FY; 80048; 80307; 82803; 85025; 85610; 85730; 86780; 86850; 86870; 86900; 86901; 86902; C9803-CS; U0003; U0005

== ENCOUNTER 2024-01-27 18:34 | Emergency (ER) | payer BC, OTHER ==
[2024-01-27 18:47] VITALS: BP 155/100; PULSE 85; RESP 18; TEMP 97.9; BMI 32.5
[2024-01-27 19:18] LABS: EPITHELIAL CELLS 0-5 /hpf
[2024-01-27] MEDS ORDERED: NITROFURANTOIN MONOHYD/M-CRYST 100 MG CAPSULE PO ONE (20:11)
[2024-01-27] MEDS: NITROFURANTOIN MONOHYD/M-CRYST 100 MG CAPSULE PO STA (20:12)
[2024-01-27] MEDS ORDERED: PHENAZOPYRIDINE HCL 100 MG TABLET (FP) ONE (20:13)
[2024-01-27] MEDS: PHENAZOPYRIDINE HCL 100 MG TABLET (FP) PO ONE (20:16)
== END 2024-01-27 20:27 | disposition home or self-care (01) ==
LOC: FER 18:34
DX: N93.9 Abnormal uterine and vaginal bleeding, unspecified (principal); R35.0 Frequency of micturition; R30.0 Dysuria; N30.01 Acute cystitis with hematuria
CPT/HCPCS: 81003; 81015; 84703; 87086; 87186; 99283-25

== ENCOUNTER 2024-03-27 11:47 | Day surgery (SDC) | payer BC ==
[2024-03-27 13:13] LABS: BASO % 0.5 % (0-2.0); EOS % 0.5 % (0-4.5); HEMATOCRIT 39.1 % (32.4-45.2); HEMOGLOBIN 13.1 GM/dL (10.7-15.3); LYMPH % 11.2 % (8-40); MCH 28.1 pg (25.7-33.7); MCHC 33.4 g/dl (32.0-36.0); MEAN PLT VOLUME 6.8 fl (7.5-11.1); MONO % 7.4 % (3.8-10.2); NEUT % 80.4 % (42.8-82.8); PLATELET COUNT 291 10^3/uL (134-434); RBC 4.65 M/mm3 (3.60-5.2); RDW 15.9 % (11.6-15.6); WHITE BLOOD COUNT 11.3 K/mm3 (4.0-10.0)
[2024-03-27 13:17] LABS: EPI CELLS 5 /uL (0-25.1); HYALINE CASTS 0 /uL (0-3.1); URINE APPEARANCE CLEAR; URINE BACTERIA >9,000 /uL (0-1359); URINE BILIRUBIN NEGATIVE (NEGATIVE); URINE COLOR YELLOW; URINE GLUCOSE (UA) NEGATIVE (NEGATIVE); URINE KETONE NEGATIVE (NEGATIVE); URINE LEUK ESTERASE 1+ (NEGATIVE); URINE NITRITE POSITIVE (NEGATIVE); URINE PROTEIN NEGATIVE (NEGATIVE); URINE RBC 8 /uL (0-23.9); URINE UROBILINOGEN 0.2 mg/dL (0.2-1.0); URINE WBC 26 /uL (0-25.8)
[2024-03-27] MEDS ORDERED: ONDANSETRON 4 MG/2 ML VIAL ONE (13:57)
[2024-03-27] MEDS ORDERED: ACETAMINOPHEN INJECTION 100 ML IVPB ONE (13:57)
[2024-03-27] MEDS: LACTATED RINGERS SOLUTION 1000 ML INFUS.BAG IV ONE (14:10)
[2024-03-27] MEDS: ACETAMINOPHEN 1000 MG/100 ML BAG IVPB ONE (14:10)
[2024-03-27] MEDS: ONDANSETRON 4 MG/2 ML VIAL IVPUSH ONE (14:10)
[2024-03-27 14:41] LABS: POTASSIUM 4.6 mmol/L (3.5-5.1)
[2024-03-27 14:45] LABS: BLOOD UREA NITROGEN 9.4 mg/dL (7-18); MAGNESIUM 2.1 mg/dL (1.8-2.4)
[2024-03-27 14:47] LABS: CREATININE 0.7 mg/dL (0.55-1.3)
[2024-03-27 14:49] LABS: BILIRUBIN,TOTAL 0.5 mg/dL (0.2-1); TOT PROT 7.6 g/dl (6.4-8.2)
[2024-03-27 14:51] LABS: CALCIUM 9.9 mg/dL (8.5-10.1)
[2024-03-27 15:42] LABS: EPI CELLS 5 /uL (0-25.1); HYALINE CASTS 0 /uL (0-3.1); URINE APPEARANCE CLEAR; URINE BACTERIA >9,000 /uL (0-1359); URINE BILIRUBIN NEGATIVE (NEGATIVE); URINE COLOR YELLOW; URINE GLUCOSE (UA) NEGATIVE (NEGATIVE); URINE KETONE NEGATIVE (NEGATIVE); URINE LEUK ESTERASE 2+ (NEGATIVE); URINE NITRITE POSITIVE (NEGATIVE); URINE PROTEIN NEGATIVE (NEGATIVE); URINE RBC 9 /uL (0-23.9); URINE UROBILINOGEN 0.2 mg/dL (0.2-1.0); URINE WBC 20 /uL (0-25.8)
[2024-03-27] MEDS ORDERED: CEFTRIAXONE 1 GM/50 ML BAG ONE (16:53)
[2024-03-27] MEDS: CEFTRIAXONE 1,000 MG in DEXTROSE 5%-WATER - 50 ML IVPB ONE (16:57)
[2024-03-27] MEDS ORDERED: morphine SULFATE 4 MG/ML VIAL ONE ×2 (16:59→18:12)
[2024-03-27] MEDS: morphine CARPU-JECT 2 MG/1 ML DISP.SYRIN IVPUSH ONE (17:03)
[2024-03-27] MEDS ORDERED: amLODIPine BESYLATE 5 MG TABLET (FP) ONE (17:37)
[2024-03-27] MEDS: amLODIPine BESYLATE 5 MG TABLET (FP) PO ONE (17:41)
[2024-03-27 17:55] LABS: INR 0.91 (0.83-1.09); PROTHROMBIN TIME (PATIENT) 10.3 SEC (9.7-13.0)
[2024-03-27 17:57] LABS: ACTIVATED PTT 32.2 SECONDS (25.2-36.5)
[2024-03-27] MEDS: morphine CARPU-JECT 4 MG/1 ML DISP.SYRIN IVPUSH ONE (18:34)
[2024-03-27] MEDS: LACTATED RINGERS SOLUTION 1,000 ML/1,000 ML INFUS.BAG IV SCH (21:00)
[2024-03-27] MEDS: CARVEDILOL 6.25 MG TABLET (FP) PO SCH (21:30)
[2024-03-27] MEDS: morphine SULFATE 4 MG/ML VIAL IVPUSH PRN (21:31)
[2024-03-27] MEDS ORDERED: metroNIDAZOLE 250 MG TABLET PO SCH (22:00)
[2024-03-28 01:07] VITALS: BMI 31.8
[2024-03-28 08:05] LABS: BASO % 0.6 % (0-2.0); EOS % 1.6 % (0-4.5); HEMATOCRIT 37.8 % (32.4-45.2); HEMOGLOBIN 12.6 GM/dL (10.7-15.3); LYMPH % 17.5 % (8-40); MCHC 33.2 g/dl (32.0-36.0); MEAN CELL VOLUME 84.5 fl (80-96); MEAN PLT VOLUME 6.7 fl (7.5-11.1); MONO % 11.4 % (3.8-10.2); NEUT % 68.9 % (42.8-82.8); PLATELET COUNT 267 10^3/uL (134-434); RBC 4.48 M/mm3 (3.60-5.2); RDW 15.5 % (11.6-15.6); WHITE BLOOD COUNT 8.5 K/mm3 (4.0-10.0)
[2024-03-28 08:13] LABS: POTASSIUM 3.8 mmol/L (3.5-5.1)
[2024-03-28] MEDS: amLODIPine BESYLATE 5 MG TABLET (FP) PO SCH (09:08)
[2024-03-28] MEDS ORDERED: BUPIVACAINE HCL/PF 0.25% (2.5MG/ML) 10 ML VIAL ONE ×2 (09:56→10:07)
[2024-03-28 09:58] LABS: ALBUMIN 3.2 g/dl (3.4-5.0); BILIRUBIN,TOTAL 0.6 mg/dL (0.2-1); CALCIUM 8.8 mg/dL (8.5-10.1); CREATININE 0.6 mg/dL (0.55-1.3); TOT PROT 6.6 g/dl (6.4-8.2)
[2024-03-28] MEDS: CEFTRIAXONE 2 GM in SODIUM CHLORIDE 100 ML IVPB SCH (10:16)
[2024-03-28] MEDS ORDERED: INDOCYANINE GREEN 25 MG/10 ML VIAL IVPUSH ONE (10:59)
[2024-03-28] MEDS ORDERED: FENTANYL CITRATE/PF 50 MCG/ML VIAL ONE ×3 (11:37→13:57)
[2024-03-28] MEDS ORDERED: PROPOFOL 40 ML ONE (11:37)
[2024-03-28] MEDS ORDERED: MIDAZOLAM HCL 2 MG/2 ML SINGLE DOSE VIAL ONE (11:37)
[2024-03-28] MEDS ORDERED: ROCURONIUM BROMIDE 50 MG/5 ML SYRINGE ONE (11:38)
[2024-03-28] MEDS ORDERED: SUCCINYLCHOLINE CHLORIDE 200 MG/10 ML SYRINGE ONE (11:38)
[2024-03-28] MEDS ORDERED: KETOROLAC TROMETHAMINE 30 MG/1 ML VIAL ONE (12:15)
[2024-03-28] MEDS ORDERED: ONDANSETRON 4 MG/2 ML VIAL ONE (12:15)
[2024-03-28] MEDS ORDERED: LIDOCAINE HCL/PF 2% SDV 5ML VIAL ONE (12:15)
[2024-03-28] MEDS ORDERED: DEXAMETHASONE SOD PHOSPHATE 4 MG/1 ML VIAL ONE (12:15)
[2024-03-28] MEDS: BUPIVACAINE HCL/PF 2.5 MG/ML - 30 ML VIAL IJ ONE (12:25)
[2024-03-28] MEDS ORDERED: SUGAMMADEX SODIUM 200 MG/2 ML VIAL ONE (12:56)
[2024-03-28] MEDS ORDERED: ONDANSETRON 4 MG/2 ML VIAL IVPUSH PRN ×2 (13:12→14:35)
[2024-03-28] MEDS: ACETAMINOPHEN 1000 MG/100 ML BAG IVPB ONE (13:40)
[2024-03-28] MEDS: LACTATED RINGERS SOLUTION 1,000 ML IV SCH (14:50)
[2024-03-28] MEDS: ACETAMINOPHEN 500 MG TABLET (FP) PO PRN (19:04)
[2024-03-28 20:45] VITALS: RESP 18
[2024-03-29] MEDS: amLODIPine BESYLATE 10 MG TABLET (FP) PO SCH (09:24)
[2024-03-29 09:32] LABS: BASO % 0.4 % (0-2.0); EOS % 0.4 % (0-4.5); HEMATOCRIT 31.5 % (32.4-45.2); HEMOGLOBIN 10.6 GM/dL (10.7-15.3); LYMPH % 13.4 % (8-40); MCH 28.2 pg (25.7-33.7); MCHC 33.6 g/dl (32.0-36.0); MEAN CELL VOLUME 83.9 fl (80-96); MEAN PLT VOLUME 6.7 fl (7.5-11.1); MONO % 7.9 % (3.8-10.2); NEUT % 77.9 % (42.8-82.8); PLATELET COUNT 248 10^3/uL (134-434); RBC 3.75 M/mm3 (3.60-5.2); RDW 15.8 % (11.6-15.6); WHITE BLOOD COUNT 11.3 K/mm3 (4.0-10.0)
[2024-03-29] MEDS ORDERED: amLODIPine BESYLATE 10 MG TABLET (FP) PO SCH (10:00)
[2024-03-29 10:42] VITALS: BP 120/72; PULSE 98; TEMP 98.8
[2024-03-29] MEDS ORDERED: CARVEDILOL 6.25 MG TABLET (FP) PO SCH (22:00)
== END 2024-03-29 10:58 | disposition home or self-care (01) ==
LOC: JER 11:47 → JERBED 16:49 → UNDOADMIN 16:49 → J5S 21:22 → JERBED 21:22 → JASUSAT 03-28 10:37 → J5S 03-28 13:09 → J6S 03-28 15:14 → JASUSAT 03-29 10:58
PROVIDERS: ATTEND Family Medicine
PROC: 3E033NZ Introduction of Analgesics, Hypnotics, Sedatives into Peripheral Vein, Percutaneous Approach (ICD-10-PCS; 2024-03-28)
PROC: 3E033NZ Introduction of Analgesics, Hypnotics, Sedatives into Peripheral Vein, Percutaneous Approach (ICD-10-PCS; 2024-03-28)
PROC: 3E033NZ Introduction of Analgesics, Hypnotics, Sedatives into Peripheral Vein, Percutaneous Approach (ICD-10-PCS; 2024-03-28)
PROC: 3E033NZ Introduction of Analgesics, Hypnotics, Sedatives into Peripheral Vein, Percutaneous Approach (ICD-10-PCS; 2024-03-28)
PROC: 3E033GC Introduction of Other Therapeutic Substance into Peripheral Vein, Percutaneous Approach (ICD-10-PCS; 2024-03-28)
PROC: 3E03329 Introduction of Other Anti-infective into Peripheral Vein, Percutaneous Approach (ICD-10-PCS; principal; 2024-03-28 10:30)
DX: K80.80 Other cholelithiasis without obstruction (principal); N12 Tubulo-interstitial nephritis, not specified as acute or chronic; R10.11 Right upper quadrant pain; R14.0 Abdominal distension (gaseous)
CPT/HCPCS: 36415; 74178-TC; 76705-TC; 80053; 81003; 83690; 83735; 84703; 85025; 85610; 85730; 86850; 86900; 86901; 87086; 87186; 88304-TC; 93005; 93010; 94010; 94760; 99285-25; J0131; Q9967